=== PATIENT | female | born 1965 | race Caucasian/White ===

== ENCOUNTER 2017-11-15 14:31 | Emergency (ER) | payer OTHER ==
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
[2017-11-15 15:44] LABS: BASO # 0.1 K/uL (0.0-0.2); EOS # 0.3 K/uL (0.0-0.7); EOS % 3.4 % (0.0-4.0); HEMOGLOBIN 13.6 g/dL (12.0-16.0); LYMPH # 1.6 K/uL (1.0-4.3); LYMPH % 18.9 % (20.0-40.0); MEAN CELL VOLUME 87.7 fl (81.0-99.0); MEAN CORPUSCULAR HEMOGLOBIN 29.5 pg (27.0-31.0); MEAN CORPUSCULAR HGB CONC 33.7 g/dL (33.0-37.0); MEAN PLATELET VOLUME 7.6 fl (7.2-11.7); MONO # 0.5 K/uL (0.0-0.8); MONO % 6.4 % (0.0-10.0); NEUT # 5.8 K/uL (1.8-7.0); NEUT % 70.3 % (50.0-75.0); NRBC % 0.3 % (0.0-0.0); RBC 4.59 Mil/uL (3.80-5.20); RED CELL DISTRIBUTION WIDTH 12.5 % (11.5-14.5); WHITE BLOOD COUNT 8.3 K/uL (4.8-10.8)
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
[2017-11-15 16:06] LABS: ALB/GLOB RATIO 1.2 (1.0-2.1); ALBUMIN 4.3 g/dL (3.5-5.0); ALT/SGPT 29 U/L (9-52); AST/SGOT 22 U/L (14-36); BLOOD UREA NITROGEN 10 mg/dl (7-17); CALCIUM 9.8 mg/dL (8.4-10.2); GFR AFRICAN-AMERICAN > 60; GFR NON-AFRICAN AMERICAN > 60
[2017-11-15] MEDS ORDERED: Sodium Chloride 0.9% 1,000 ML IV STA (17:32)
[2017-11-15] MEDS ORDERED: Sodium Chloride 0.9% 100 ML ONE (18:11)
[2017-11-15] MEDS ORDERED: Iodixanol 320 MG/ML 100 ML BOTTLE IV ONE (18:11)
--- NOTE | 2017-11-15 21:12 | ED PDOC ---
- Laboratory Results Result Diagrams: 11/15/17 15:25 11/15/17 15:25 - ECG O2 Sat by Pulse Oximetry: 95 - Progress ED Course And Treament: CTA CHEST: FINDINGS: Pulmonary arteries: Unremarkable. No acute pulmonary embolism. Aorta: No acute findings. No dissection. Lungs: Unremarkable. No focal consolidation. Pleural space: Unremarkable. No significant effusion. No pneumothorax. Heart: Unremarkable. Bones/joints: No acute fracture. No dislocation. Soft tissues: Unremarkable as visualized. Lymph nodes: Unremarkable. IMPRESSION: No pulmonary embolism. Thank you for allowing us to participate in the care of your patient. Dictated and Authenticated by: Natasha Urbano M Disposition - Clinical Impression Clinical Impression: Urinary tract infection, Muscle strain of chest wall - POA Present On Arrival: None - Disposition Referrals: Rangel Bowser MD [Staff Provider] - Disposition: Routine/Home Disposition Time: 21:12 Condition: STABLE Prescriptions: Cephalexin [Keflex] 500 mg PO TID #15 capsule Naproxen 375 mg PO Q8 PRN #21 tablet PRN Reason: Pain, Moderate (4-7) Instructions: Urinary Tract Infections in Adults, Muscle Strain, Pleuritic Chest Pain
[2017-11-16 00:21] VITALS: BP 137/78; PULSE 78; RESP 16; TEMP 98.2; O2SAT 97
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
== END 2017-11-15 21:55 | disposition home or self-care (01) ==
LOC: H.ER 14:31
DX: N39.0 Urinary tract infection, site not specified (principal)
CPT/HCPCS: 71101; 71275; 80053; 84484; 85025; 85378; 87086; 99284; J7030; Q9967